=== PATIENT | male | born 2000 | race Caucasian/White ===

== ENCOUNTER 2021-10-06 17:39 | Emergency (ER) | payer OTHER ==
[~2021-10-06] VITALS: Ht 182.9 cm; Wt 90.7 kg
[2021-10-06 17:46] VITALS: BP 143/94
[2021-10-06 18:28] VITALS: BP 163/96
--- NOTE | 2021-10-06 18:33 | NUR ---
PATIENT BIB [employer]. PATIENT EXAMINED BY DR. ROA. PATIENT MEDICALLY CLEARED AND RELEASED IN CUSTODY IN STABLE CONDITION. ORIGINAL PRE-BOOK FORM GIVEN TO [employer].
== END 2021-10-06 18:28 | disposition home or self-care (01) ==
LOC: MED 17:39
DX: S80.212A Abrasion, left knee, initial encounter (principal); S50.312A Abrasion of left elbow, initial encounter; Z02.89 Encounter for other administrative examinations; W19.XXXA Unspecified fall, initial encounter; Y93.89 Activity, other specified; Y92.89 Other specified places as the place of occurrence of the external cause; Y99.8 Other external cause status
CPT/HCPCS: 99283